=== PATIENT | male | born 1985 | race Hispanic/Latino ===

== ENCOUNTER 2018-07-11 21:53 | Emergency (ER) | payer BC, SELFPAY ==
[2018-07-11 23:39] LABS: Absolute Lymphocytes (CBC) 2.9 K/uL (0.7-4.9); Absolute Monocytes 1.1 K/uL (0.1-1.3); Absolute Neutrophil 6.9 K/uL (1.8-8.0); Basophils % 0.2 % (0-1.3); Eosinophils % 0.4 % (0-4.4); Hematocrit 41.9 % (39.6-49.0); Lymphocytes % 26.5 % (15.3-44.8); MPV 8.1 fL (7.6-11.3); Monocytes % 9.7 % (3.3-12.3); RBC Red Blood Cell Count 4.88 M/uL (4.33-5.43)
[2018-07-11] MEDS ORDERED: NA CHLORIDE 0.9% 1,000 ML ONE (23:42)
[2018-07-11 23:54] LABS: Protime INR 1.14
[2018-07-12 00:03] LABS: ALT/SGPT 33 U/L (12-78); AST/SGOT 19 U/L (15-37); Albumin 4.3 g/dL (3.4-5.0); Alkaline Phosphatase 69 U/L (45-117); BUN Blood Urea Nitrogen 12 mg/dL (7-18); Bicarbonate 26 mmol/L (21-32); Bilirubin Direct 0.1 mg/dL (0-0.2); Bilirubin Total 0.6 mg/dL (0.2-1.0); Creatine Phosphokinase 415 U/L (39-308); Glucose Level 116 mg/dL (74-106); Magnesium 1.8 mg/dL (1.8-2.4); NT PRO-BNP 5 pg/mL (<125); Potassium 3.5 mmol/L (3.5-5.1); Sodium Level 139 mmol/L (136-145); Troponin (Emerg Dept Use Only) < 0.02 ng/mL (0.0-0.045)
[2018-07-12] MEDS ORDERED: NA CHLORIDE 0.9% 1,000 ML ONE (01:17)
[2018-07-12 02:00] LABS: Barbiturates NEGATIVE (NEGATIVE); Benzodiazepines NEGATIVE (NEGATIVE); Cocaine NEGATIVE (NEGATIVE); METHAMPHETAM POSITIVE (NEGATIVE); Methadone NEGATIVE (NEGATIVE); Opiates NEGATIVE (NEGATIVE); Phencyclidine NEGATIVE (NEGATIVE); THC Cannibis NEGATIVE (NEGATIVE)
--- NOTE | 2018-07-12 02:33 | ER ---
Nurse's Notes [facility] Name: Son Zaragoza Age: 32 yrs Sex: Male : 1985 Arrival Date: 07/11/2018 Time: 21:57 Bed 28 Private MD: Diagnosis: Dehydration Presentation: 07/11 22:09 Presenting complaint: Patient states: "I feel like I'm dehydrated and short of breath"; lp1 Patient states drinking unknown amount of alcohol last night; Denies vomiting. Transition of care: patient was not received from another setting of care. Onset of symptoms was July 11, 2018. Risk Assessment: Do you want to hurt yourself or someone else? Patient reports no desire to harm self or others. Initial Sepsis Screen: Does the patient meet any 2 criteria? HR > 90 bpm. Does the patient have a suspected source of infection? No. Patient's initial sepsis screen is negative. Care prior to arrival: None. 22:09 Method Of Arrival: Ambulatory lp1 22:09 Acuity: ALEXANDER 2 lp1 Triage Assessment: 23:44 General: Appears in no apparent distress. comfortable, Behavior is calm, cooperative. mg2 Respiratory: the patient has mild shortness of breath. Historical: - Allergies: 22:10 No Known Allergies; lp1 - Home Meds: 22:10 None [Active]; lp1 - PMHx: 22:10 None; lp1 - PSHx: 22:10 None; lp1 - Immunization history:: Adult Immunizations up to date. - Social history:: Smoking status: Patient uses tobacco products, denies chronic smoking, but will smoke occasionally, Patient uses alcohol, only on a social basis. - Ebola Screening: : No symptoms or risks identified at this time. Screenin:10 Abuse screen: Denies threats or abuse. Denies injuries from another. Nutritional lp1 screening: No deficits noted. Tuberculosis screening: No symptoms or risk factors identified. Fall Risk None identified. Assessment: 23:10 General: Appears in no apparent distress. comfortable, Behavior is calm, cooperative. mg2 Pain: Complains of pain in head Pain does not radiate. Pain currently is 5 out of 10 on a pain scale. Quality of pain is described as aching, Pain began gradually, 1 day ago. Is intermittent. Neuro: Level of Consciousness is awake, alert, obeys commands, Oriented to person, place, time, situation. Cardiovascular: Capillary refill < 3 seconds Patient's skin is warm and dry. Respiratory: Airway is patent Respiratory effort is even, unlabored, Respiratory pattern is regular, symmetrical. Respiratory: Reports shortness of breath Breath sounds are clear bilaterally. in mediastinum, right upper lobe, left upper lobe, right middle lobe, left lower lobe and right lower lobe. GI: Reports feeling dehydrated. : No signs and/or symptoms were reported regarding the genitourinary system. EENT: No signs and/or symptoms were reported regarding the EENT system. Derm: Skin is intact, is healthy with good turgor, Skin is pink, warm \\T\\ dry. normal. Musculoskeletal: Circulation, motion, and sensation intact. Capillary refill < 3 seconds. 23:45 Cardiovascular: Rhythm is sinus tachycardia. mg2 07/12 00:52 Reassessment: Patient appears in no apparent distress at this time. Patient and/or mg2 family updated on plan of care and expected duration. Pain level reassessed. Patient is alert, oriented x 3, equal unlabored respirations, skin warm/dry/pink. 02:30 Reassessment: Patient states feeling better. mg2 Vital Signs: 07/11 22:10 BP 129 / 88; Pulse 135; Resp 18; Temp 98.3(O); Pulse Ox 98% on R/A; Weight 95.25 kg; lp1 Height 5 ft. 5 in. (165.10 cm); Pain 0/10; 23:46 BP 145 / 92; Pulse 116; Resp 18; Pulse Ox 100% on R/A; Pain 4/10; mg2 07/12 00:52 BP 138 / 80; Pulse 108; Resp 18; Pulse Ox 98% on R/A; mg2 02:41 BP 129 / 78; Pulse 100; Resp 18; Pulse Ox 100% on R/A; Pain 0/10; mg2 07/11 22:10 Body Mass Index 34.95 (95.25 kg, 165.10 cm) lp1 ED Course: 07/11 21:57 Patient arrived in ED. am2 22:09 Triage completed. lp1 22:10 Arm band placed on right wrist. lp1 22:29 Olaf Beltran MD is Attending Physician. gs 23:06 José Layne RN is Primary Nurse. mg2 23:13 Patient has correct armband on for positive identification. Pulse ox on. NIBP on. Door mg2 closed. 23:13 No provider procedures requiring assistance completed. mg2 23:20 Initial lab(s) drawn, by me, sent to lab. Inserted saline lock: 20 gauge in left jp3 antecubital area, using aseptic technique. Blood collected. 23:30 EKG done, by ED staff, reviewed by Olaf Beltran MD. Patient maintains SpO2 saturation jp3 greater than 95% on room air. 23:42 Warm blanket given. Pillow given. surveillance system monitor on. jp3 23:42 Thyroid Stimulating Hormone Sent. jp3 23:42 Creatine Phosphokinase Sent. jp3 07/12 00:02 X-ray completed. Portable x-ray completed in exam room. Patient tolerated procedure kw well. 00:13 XRAY Chest (1 view) In Process Unspecified. EDMS 00:16 CT Head Brain wo Cont In Process Unspecified. EDMS 02:42 IV discontinued, intact, bleeding controlled, No redness/swelling at site. Pressure mg2 dressing applied. Administered Medications: 07/11 23:20 Not Given (Duplicate Order): Lopressor 5 mg IVP once; Hold for SBP <100 or HR <60. gs 23:32 Drug: NS 0.9% 1000 ml Route: IV; Rate: 1 bolus; Site: left antecubital; mg2 07/12 01:38 Follow up: Response: No adverse reaction; IV Status: Completed infusion; IV Intake: mg2 1000ml 01:05 Drug: NS 0.9% 1000 ml Route: IV; Rate: 1 bolus; Site: left antecubital; mg2 02:31 Follow up: Response: No adverse reaction; IV Status: Completed infusion; IV Intake: mg2 1000ml Intake: 01:38 IV: 1000ml; Total: 1000ml. mg2 02:31 IV: 1000ml; Total: 2000ml. mg2 Outcome: 02:32 Discharge ordered by . gs 02:43 Discharged to home ambulatory, with family. mg2 02:43 Condition: stable 02:43 Discharge instructions given to patient, family, Instructed on discharge instructions, follow up and referral plans. Demonstrated understanding of instructions, follow-up care. 02:43 Patient left the ED. mg2 Signatures: Dispatcher [employer] EDMS Minnie Tineo Laura, RN RN lp1 Angélica Chiang am2 Olaf Beltran MD MD gs José Layne, RN RN mg2 Paolo Varghese jp3
--- NOTE | 2018-07-12 02:33 | EDPHYS ---
Physician Documentation [facility] Name: Son Zaragoza Age: 32 yrs Sex: Male : 1985 Arrival Date: 07/11/2018 Time: 21:57 Bed 28 Private MD: ED Physician Olaf Beltran HPI: 07/12 02:18 This 32 yrs old Male presents to ER via Ambulatory with complaints of gs dehydration. 02:18 The patient presents to the emergency department said drank over a case of beer on gs Wednesday did not vomit feels generally weak heart beating fast and feels a little sob, has had episodes in past and says he is dehydrated.. Severity of symptoms: At their worst the symptoms were severe in the emergency department the symptoms are unchanged. The patient has experienced similar episodes in the past, a few times. Historical: - Allergies: 07/11 22:10 No Known Allergies; lp1 - Home Meds: 22:10 None [Active]; lp1 - PMHx: 22:10 None; lp1 - PSHx: 22:10 None; lp1 - Immunization history:: Adult Immunizations up to date. - Social history:: Smoking status: Patient uses tobacco products, denies chronic smoking, but will smoke occasionally, Patient uses alcohol, only on a social basis. - Ebola Screening: : No symptoms or risks identified at this time. ROS: 07/12 02:18 Cardiovascular: Negative for chest pain. gs Neuro: Positive for headache, weakness. All other systems are negative. Exam: 02:18 Head/Face: Normocephalic, atraumatic. Eyes: Pupils equal round and reactive to light, gs extra-ocular motions intact. Lids and lashes normal. Conjunctiva and sclera are non-icteric and not injected. Cornea within normal limits. Periorbital areas with no swelling, redness, or edema. ENT: Nares patent. No nasal discharge, no septal abnormalities noted. Tympanic membranes are normal and external auditory canals are clear. Oropharynx with no redness, swelling, or masses, exudates, or evidence of obstruction, uvula midline. Mucous membranes moist. Neck: Trachea midline, no thyromegaly or masses palpated, and no cervical lymphadenopathy. Supple, full range of motion without nuchal rigidity, or vertebral point tenderness. No Meningismus. Chest/axilla: Normal chest wall appearance and motion. Nontender with no deformity. No lesions are appreciated. Respiratory: Lungs have equal breath sounds bilaterally, clear to auscultation and percussion. No rales, rhonchi or wheezes noted. No increased work of breathing, no retractions or nasal flaring. Abdomen/GI: Soft, non-tender, with normal bowel sounds. No distension or tympany. No guarding or rebound. No evidence of tenderness throughout. Back: No spinal tenderness. No costovertebral tenderness. Full range of motion. Skin: Warm, dry with normal turgor. Normal color with no rashes, no lesions, and no evidence of cellulitis. MS/ Extremity: Pulses equal, no cyanosis. Neurovascular intact. Full, normal range of motion. Neuro: Awake and alert, GCS 15, oriented to person, place, time, and situation. Cranial nerves II-XII grossly intact. Motor strength 5/5 in all extremities. Sensory grossly intact. Cerebellar exam normal. Normal gait. 02:18 Constitutional: The patient appears alert, awake, uncomfortable. 02:18 Cardiovascular: Rate: tachycardic, Rhythm: regular, Pulses: no pulse deficits are appreciated, Heart sounds: normal. 02:18 ECG was reviewed by the Attending Physician. Vital Signs: 07/11 22:10 BP 129 / 88; Pulse 135; Resp 18; Temp 98.3(O); Pulse Ox 98% on R/A; Weight 95.25 kg; lp1 Height 5 ft. 5 in. (165.10 cm); Pain 0/10; 23:46 BP 145 / 92; Pulse 116; Resp 18; Pulse Ox 100% on R/A; Pain 4/10; mg2 07/12 00:52 BP 138 / 80; Pulse 108; Resp 18; Pulse Ox 98% on R/A; mg2 02:41 BP 129 / 78; Pulse 100; Resp 18; Pulse Ox 100% on R/A; Pain 0/10; mg2 07/11 22:10 Body Mass Index 34.95 (95.25 kg, 165.10 cm) lp1 MDM: 07/11 23:19 Patient medically screened. gs 07/12 02:18 Differential diagnosis: Ingestion/exposure to etoh over medication, intracranial gs hemorrhage, rhabdo,mi. Data reviewed: vital signs, nurses notes, lab test result(s), EKG, radiologic studies. Counseling: I had a detailed discussion with the patient and/or guardian regarding: the historical points, exam findings, and any diagnostic results supporting the discharge/admit diagnosis, lab results, the need for outpatient follow up. Response to treatment: the patient's symptoms have markedly improved after treatment, the patient's symptoms have resolved after treatment, the patient's condition has returned to base line, and as a result, I will discharge patient. 07/11 23:13 Order name: Basic Metabolic Panel; Complete Time: 01:02 07/11 23:13 Order name: CBC with Diff; Complete Time: 01: 07/11 23:13 Order name: LFT's; Complete Time: 01: 07/11 23:13 Order name: Magnesium; Complete Time: 01: 07/11 23:13 Order name: NT PRO-BNP; Complete Time: 01:02 07/11 23:13 Order name: PT-INR; Complete Time: 01: 07/11 23:13 Order name: Troponin (emerg Dept Use Only); Complete Time: 01: 07/11 23:13 Order name: XRAY Chest (1 view) 07/11 23:23 Order name: Urine Drug Screen; Complete Time: 02:33 07/11 23:39 Order name: Creatine Phosphokinase; Complete Time: 01:02 EDNM 07/11 23:39 Order name: Thyroid Stimulating Hormone; Complete Time: 01:02 [facility] 07/12 02:11 Order name: Urine Dipstick--Ancillary (enter results) tl2 07/11 23:13 Order name: EKG; Complete Time: 23:14 07/11 23:13 Order name: Cardiac monitoring; Complete Time: 23:32 07/11 23:13 Order name: EKG - Nurse/Tech; Complete Time: 23:33 07/11 23:13 Order name: IV Saline Lock; Complete Time: 23:33 07/11 23:13 Order name: Labs collected and sent; Complete Time: 23:33 07/11 23:13 Order name: O2 Per Protocol; Complete Time: 23:33 07/11 23:13 Order name: O2 Sat Monitoring; Complete Time: 23:33 07/11 23:23 Order name: CT Head Brain wo Cont gs EC:18 Rate is 107 beats/min. Rhythm is regular. LA interval is normal. QRS interval is gs normal. No Q waves. T waves are Flattened. No ST changes noted. Clinical impression: NSR w/ Non-specific ST/T Changes. Interpreted by me. Administered Medications: 07/11 23:20 Not Given (Duplicate Order): Lopressor 5 mg IVP once; Hold for SBP <100 or HR <60. 23:32 Drug: NS 0.9% 1000 ml Route: IV; Rate: 1 bolus; Site: left antecubital; mg2 07/12 01:38 Follow up: Response: No adverse reaction; IV Status: Completed infusion; IV Intake: mg2 1000ml 01:05 Drug: NS 0.9% 1000 ml Route: IV; Rate: 1 bolus; Site: left antecubital; mg2 02:31 Follow up: Response: No adverse reaction; IV Status: Completed infusion; IV Intake: mg2 1000ml Disposition: 07/12/18 02:32 Discharged to Home. Impression: Dehydration. - Condition is Stable. - Discharge Instructions: Dehydration, Adult. - Medication Reconciliation Form, Thank You Letter, Antibiotic Education, Prescription Opioid Use, Work release form form. - Follow up: Private Physician; When: 2 - 3 days; Reason: Re-evaluation by your physician. Signatures: Dispatcher [employer] [facility] Myra Arguello RN RN lp1 Olaf Beltran MD MD José Layne RN RN mg2 Corrections: (The following items were deleted from the chart) 07/11 23:38 23:21 CREATINE PHOSPHOKINASE+C.LAB.BRZ ordered. [facility] EDNM 23:38 23:23 THYROID STIMULAT HORMONE+C.LAB.BRZ ordered. [facility] EDNM 07/12 02:43 02:32 07/12/2018 02:32 Discharged to Home. Impression: Dehydration. Condition is mg2 Stable. Forms are Medication Reconciliation Form, Thank You Letter, Antibiotic Education, Prescription Opioid Use. Follow up: Private Physician; When: 2 - 3 days; Reason: Re-evaluation by your physician.
[2018-07-12 02:42] LABS: Urine Blood TRACE (NEG); Urine Glucose NEGATIVE (NEG); Urine Protein NEGATIVE (NEG); Urine Specific Gravity 1.015 (1.005-1.030)
--- NOTE | 2018-07-12 07:49 | EKG ---
Test Date: 2018-07-11 Test Time: 23:32:09 Bet Taker: JACOBO MEASUREMENT RESULTS: Intervals: Rate: 107 OR: 158 QRSD: 86 QT: 318 QTc: 424 [place]: P: 53 OR: 158 QRS: 23 T: 86 INTERPRETIVE STATEMENTS: Sinus tachycardia Nonspecific T wave abnormality Abnormal ECG No previous ECG available for comparison Electronically Signed On 07-12-18 07:48:17 CDT by Juan Montero
--- NOTE | 2018-07-12 08:16 | RAD REPORT ---
EXAM DESCRIPTION: RAD - Chest Single View - 07/12/2018 12:03 am CLINICAL HISTORY: MALAISE Chest pain. COMPARISON: No comparisons FINDINGS: Portable technique limits examination quality. The lungs are grossly clear. The heart is normal in size. No displaced fractures. IMPRESSION: No acute intrathoracic process suspected.
--- NOTE | 2018-07-12 10:16 | RAD REPORT ---
EXAM DESCRIPTION: CT Head Without Intravenous Contrast CLINICAL HISTORY: The patient is 32 years old and is Male; HEADACHE TECHNIQUE: Axial computed tomography images of the head/brain without intravenous contrast. Sagitt al and coronal reformatted images were created and reviewed. This CT exam was performed using one o r more of the following dose reduction techniques: automated exposure control, adjustment of the mA and/or kV according to patient size, and/or use of iterative reconstruction technique. COMPARISON: No relevant prior studies available. FINDINGS: BRAIN: Unremarkable. The jones-white matter differentiation is preserved . No hemorrhag e. No significant white matter disease. No edema. No extra-axial fluid collections. VENTRICLES: Unremarkable. No ventriculomegaly. BONES/JOINTS: No acute fracture. SOFT TISSUES: Unremarkable. SINUSES: Unremarkable as visualized. No acute sinusitis. MASTOID AIR CELLS: Unremarkable as visualized. No mastoid effusion. IMPRESSION: No acute intracranial findings. Electronically signed by: Hali Padilla MD 07/12/2018 12:12 AM CDT Due to temporary technical issues with the PACS/Fluency reporting system, reports are being signed by the in house radiologist as a courtesy to ensure prompt reporting. The interpreting radiologist is f ully responsible for the content of the report.
== END 2018-07-12 02:43 | disposition home or self-care (01) ==
LOC: ER 21:53
DX: E86.0 Dehydration (principal); Z72.0 Tobacco use
CPT/HCPCS: 36415; 70450; 71045; 80048; 80076; 80307; 81003; 82550; 83735; 83880; 84443; 84484; 85025; 85610; 93005; 96360; 96361; 99285; J7030